=== PATIENT | female | born 1990 | race Caucasian/White ===

== ENCOUNTER 2018-01-02 18:00 | Inpatient (IN) | payer BC ==
[~2018-01-02] VITALS: Ht 157.5 cm; Wt 66.2 kg
[2018-01-02 18:34] VITALS: BP 111/57
[2018-01-02] MEDS ORDERED: PRENATAL TABLE1 EAC3 PO (18:40)
[2018-01-02 19:12] LABS: BASOPHIL (%) 0.1 % (0-1); EOSINOPHIL (%) 0.3 % (0-5); HEMATOCRIT 33.3 % (36.0-46.0); HEMOGLOBIN 11.1 G/DL (11.9-15.5); IMMATURE GRANULOCYTE (%) 0.8 % (0.0-0.7); LYMPHOCYTE (%) 18.6 % (15-42); MCH 26.9 PG (29.0-34.0); MCHC 33.3 G/DL (30.0-36.0); MCV 80.6 FL (83-99); MONOCYTE (%) 6.8 % (3-12); MONOCYTE COUNT 0.7 K/uL (0-0.8); NEUTROPHIL (%) 73.4 % (45-76); NEUTROPHIL COUNT 7.7 K/uL (1.8-6.4); PLATELET COUNT 172 K/uL (156-360); RBC DIS.WIDTH-CV 13.3 % (11.8-14.6); RBC DIS.WIDTH-SD 38.5 % (39-53); RED BLOOD COUNT 4.13 M/uL (3.80-5.20); WHITE BLOOD COUNT 10.5 K/uL (4.1-10.2)
[2018-01-02 19:13] VITALS: BP 101/65
[2018-01-02 19:39] LABS: AMPHETAMINE NEGATIVE (500 ng/mL); BARBITURATES NEGATIVE (200 ng/mL); BENZODIAZEPINES NEGATIVE (150 ng/mL); BUPRENORPHINE NEGATIVE (10 ng/mL); COCAINE NEGATIVE (150 ng/mL); METHADONE NEGATIVE (200 ng/mL); METHAMPHETAMINE NEGATIVE (500 ng/mL); OPIATES (MORPHINE) NEGATIVE (100 ng/mL); OXYCODONE NEGATIVE (100 ng/mL); PHENCYCLIDINE NEGATIVE (25 ng/mL); PROPOXYPHENE NEGATIVE (300 ng/mL); THC CANNABINOIDS NEGATIVE (50 ng/mL); TRICYCLIC ANTIDEPRESSANTS NEGATIVE (300 ng/mL)
[2018-01-02 22:41] VITALS: BP 92/50
[2018-01-02 22:42] VITALS: BP 103/56
[2018-01-03] VITALS (13 sets, daily range): BP systolic 87–125; BP diastolic 50–66
[2018-01-03] MEDS ORDERED: IBUPROFEN800 MG PO (05:55)
[2018-01-04 10:00] VITALS: BP 105/62
[2018-01-04 14:48] VITALS: BP 117/81
[2018-01-05 07:20] VITALS: BP 138/70
[2018-01-05 15:10] VITALS: BP 113/68
== END 2018-01-05 16:20 | disposition home or self-care (01) | DRG 775 ==
LOC: LDRP-OP 18:00 → 2WEST 18:01 → LDRP-OP 18:53 → 2WEST 01-03 05:29 → LDRP-OP 01-21 15:21
PROVIDERS: Advanced Practice Midwife
PROC: 3E0P7VZ Introduction of Hormone into Female Reproductive, Via Natural or Artificial Opening (ICD-10-PCS; 2018-01-02)
PROC: 10E0XZZ Delivery of Products of Conception, External Approach (ICD-10-PCS; principal; 2018-01-03)
DX: O62.3 Precipitate labor (principal); O48.0 Post-term pregnancy; O99.354 Diseases of the nervous system complicating childbirth; G43.909 Migraine, unspecified, not intractable, without status migrainosus; Z37.0 Single live birth; Z3A.41 41 weeks gestation of pregnancy
CPT/HCPCS: 85025; G0378